=== PATIENT | male | born 1940 | race Caucasian/White ===

== ENCOUNTER → 2016-06-30 | Day surgery (SDC) | payer MEDICARE, BC ==
[~2016-06-30] MED LIST: Acetaminophen TAB* 325 MG PO PRN; Buffered Lidocaine 1% SYR 3ML* 3 ML/SYR SYRINGE INTRADERM ONE; Buffered Lidocaine 1% SYR 3ML* 3 ML/SYR SYRINGE ONE; Cyclopentolate 1% OPTH.SOL* 2 ML BTL ONE; Flurbiprofen 0.03% OPTH.SOL* 2.5 ML BTL ONE; Lidocaine 1% MPF* 2 ML VIAL ONE; Lidocaine 2% EPI 1:200000 MPF* 20 ML VIAL ONE; Midazolam* 1 MG/ML 2 ML VIAL (2 MG) ONE; Neomycin/Polymy/Dex OPTH.SUSP* MAXITROL 0.1% 5 ML ONE; Phenylephrine 2.5% OPTH.SOL* 2 ML BTL ONE; Povidone Iodine 5% OPTH* 30 ML BTL ONE; Proparacaine 0.5% OPHTH.SOL* 15 ML BTL ONE; acetaZOLAMIDE TAB* 250 MG ONE; fentaNYL* 50 MCG/ML 2 ML VIAL (100 MCG VIAL) ONE
[2016-06-30 12:19] VITALS: BP 122/72
--- NOTE | 2016-06-30 22:57 | OP ---
DATE OF OPERATION: 06/30/16 [facility] DATE OF : 38 SURGEON: Ronny Edwards MD PREOPERATIVE DIAGNOSIS: Cataract, right eye. POSTOPERATIVE DIAGNOSIS: Cataract, right eye. OPERATIVE PROCEDURE: Phacoemulsification, right eye with IOL. DESCRIPTION OF PROCEDURE: The patient was brought to the operating room after being given 1/2% Alcaine with epinephrine drops in the preoperative area. The eye was prepped and draped in the usual sterile fashion. Sterile drape and eyelid speculum were placed. Again, topical 1/2% Alcaine with epinephrine was given. A paracentesis incision was made at the 9 o'clock position with the No.75 blade. Clear cornea incision 2.2 x 2.2-mm was created at the 12 o'clock position starting at the anterior limbus using the 2.2-mm keratome. The anterior chamber was irrigated with 0.4 mL of 1% non-preservative intracameral lidocaine and filled with DisCoVisc. A capsulorrhexis was completed using the cystotome and the Utrata forceps. Hydrodissection was performed with balanced salt solution. The lens nucleus was removed with the Phacoemulsification handpiece without incident. Cortex was removed with the irrigation-aspiration handpiece. The capsular bag was re-inflated using DisCoVisc and an SN60WF 16 inserted with the shooter followed by an iStent GTS-100L inserted into the trabecular mesh work at 3 o'clock position using its shooter. The irrigation- aspiration handpiece was used to remove all residual DisCoVisc. The eye was refilled with balanced salt solution and the wound checked and found to be watertight. Topical Maxitrol drops were given. [id number]/[facility] [place] #: [id number] [facility]
== END | disposition home or self-care (01) ==
LOC: OREAST 08:28
PROVIDERS: ATTEND Specialist
DX: H25.811 Combined forms of age-related cataract, right eye (principal); H40.1113 Primary open-angle glaucoma, right eye, severe stage; G47.33 Obstructive sleep apnea (adult) (pediatric); Z87.891 Personal history of nicotine dependence; E03.9 Hypothyroidism, unspecified
CPT/HCPCS: A9270-GY; C1783; J2250; J3010; V2632

== ENCOUNTER → 2016-07-07 | Day surgery (SDC) | payer MEDICARE, BC ==
[~2016-07-07] MED LIST changes: -Acetaminophen TAB* 325 MG PO PRN; +Lidocaine 2% PF * 5 ML VIAL ONE; +Propofol* 10 MG/ML 20 ML BTL IV PUSH ONE; -fentaNYL* 50 MCG/ML 2 ML VIAL (100 MCG VIAL) ONE
[2016-07-07 10:25] VITALS: BP 119/84
--- NOTE | 2016-07-07 13:15 | OP ---
OPERATIVE NOTE: DATE OF OPERATION: 07/07/16 DATE OF : 38 SURGEON: Ronny Edwards M.D. PREOPERATIVE DIAGNOSIS: Cataract, left eye. POSTOPERATIVE DIAGNOSIS: Cataract, left eye. OPERATIVE PROCEDURE: Phacoemulsification, left eye, with IOL and iStent. PROCEDURE: The patient was brought to the operating room after being given 1/2% Alcaine with epinep hrine drops in the preoperative area. The eye was prepped and draped in the usual sterile fashion. Sterile drape and eyelid speculum were placed. Again, topical 1/2% Alcaine with epinephrine was gi devorah. A paracentesis incision was made at the 3 o'clock position with the No.75 blade. Clear cornea incision 2.2 x 2.2-mm was created at the 6 o'clock position starting at the anterior limbus using t he 2.2-mm keratome. The anterior chamber was irrigated with 0.4 mL of 1% non-preservative intracame ral lidocaine and filled with DisCoVisc. A capsulorrhexis was completed using the cystotome and the Utrata forceps. Hydrodissection was performed with balanced salt solution. The lens nucleus was re moved with the Phacoemulsification handpiece without incident. Cortex was removed with the irrigati on-aspiration handpiece. The capsular bag was re-inflated using DisCoVisc and an SN60WF 18.5 diopte r implant was inserted with the shooter followed by an iStent GTS-100L inserted with its shooter int o the trabecular meshwork at the 9 o'clock position. The irrigation-aspiration handpiece was used t o remove all residual DisCoVisc. The eye was refilled with balanced salt solution and the wound thiago cked and found to be watertight. Topical Maxitrol drops were given. [id number]/[facility] #: [id number]
== END | disposition home or self-care (01) ==
LOC: OREAST 07:10
PROVIDERS: ATTEND Specialist
DX: H25.812 Combined forms of age-related cataract, left eye (principal); H40.1113 Primary open-angle glaucoma, right eye, severe stage; H40.1122 Primary open-angle glaucoma, left eye, moderate stage; I10 Essential (primary) hypertension; E78.4 Other hyperlipidemia; G47.33 Obstructive sleep apnea (adult) (pediatric)
CPT/HCPCS: A9270-GY; C1783; J2250; J2704; V2632

== ENCOUNTER 2018-01-25 06:40 | Day surgery (SDC) | payer MEDICARE, BC ==
[~2018-01-25 06:40] MED LIST changes: +Acetaminophen TAB* 325 MG PO PRN; +Buffered Lidocaine 0.9% SYRIN* 5 ML/SYR SYRINGE INTRADERM ONE; -Buffered Lidocaine 1% SYR 3ML* 3 ML/SYR SYRINGE INTRADERM ONE; -Buffered Lidocaine 1% SYR 3ML* 3 ML/SYR SYRINGE ONE; -Cyclopentolate 1% OPTH.SOL* 2 ML BTL ONE; -Flurbiprofen 0.03% OPTH.SOL* 2.5 ML BTL ONE; -Lidocaine 1% MPF* 2 ML VIAL ONE; -Lidocaine 2% EPI 1:200000 MPF* 20 ML VIAL ONE; -Lidocaine 2% PF * 5 ML VIAL ONE; -Midazolam* 1 MG/ML 2 ML VIAL (2 MG) ONE; -Neomycin/Polymy/Dex OPTH.SUSP* MAXITROL 0.1% 5 ML ONE; -Phenylephrine 2.5% OPTH.SOL* 2 ML BTL ONE; -Povidone Iodine 5% OPTH* 30 ML BTL ONE; -Proparacaine 0.5% OPHTH.SOL* 15 ML BTL ONE; -Propofol* 10 MG/ML 20 ML BTL IV PUSH ONE; -acetaZOLAMIDE TAB* 250 MG ONE; +mitoMYcin PWD* 0.2 MG in Sterile Water for Inj* 1 ML OPHTHALMIC SCH
[2018-01-25] MEDS ORDERED: Propofol* 10 MG/ML 20 ML BTL IV PUSH ONE (07:44)
[2018-01-25] MEDS ORDERED: Lidocaine 2% PF * 5 ML VIAL ONE (07:44)
[2018-01-25] MEDS ORDERED: fentaNYL* 50 MCG/ML 2 ML VIAL (100 MCG VIAL) ONE (07:44)
[2018-01-25 08:52] VITALS: BP 142/86
[2018-01-25] MEDS ORDERED: Proparacaine 0.5% OPHTH.SOL* 15 ML BTL ONE (14:50)
[2018-01-25] MEDS ORDERED: Povidone Iodine 5% OPTH* 30 ML BTL ONE (14:50)
[2018-01-25] MEDS ORDERED: Neomycin/Polymy/Dex OPTH.SUSP* MAXITROL 0.1% 5 ML ONE (14:50)
[2018-01-25] MEDS ORDERED: Lidocaine 2% EPI 1:200000 MPF*10-20 ML VIAL ONE (14:50)
[2018-01-25] MEDS ORDERED: Lidocaine 1%* 5 ML VIAL ONE (14:50)
--- NOTE | 2018-01-25 19:16 | OP ---
DATE OF OPERATION: 01/25/18 [facility] DATE OF : 38 SURGEON: Ronny Edwards MD ANESTHESIA: Local with MAC PRE-OP DIAGNOSIS: Uncontrolled glaucoma, right eye. POST-OP DIAGNOSIS: Uncontrolled glaucoma, right eye. OPERATIVE PROCEDURE: XEN Gel implant, right eye. DESCRIPTION OF PROCEDURE: The patient was prepped and draped in the usual sterile fashion. Lid speculum was placed. 2% lidocaine with epinephrine was placed. A paracentesis was made at the 9 o'clock position. 1% non- preservative intracameral lidocaine injected into the anterior chamber. A 1.8- mm clear corneal incision was made at the 7 o'clock position. The gel implant was marked with a marking pen 3 mm posterior to limbus maria t, mitomycin-C 0.2 mg/ mL was injected subconjunctival superiorly. The device was attempted to be inserted on the first pass at the 2 o'clock, however, was unsuccessfully placed. This device was removed and a second implant placed at the 1 o'clock position without difficulty. The Healon was irrigated out with balanced salt solution and then topical Maxitrol drops were given. [id number]/[facility] #: [id number] [facility]
== END 2018-01-25 09:09 | disposition home or self-care (01) ==
LOC: OREAST 06:40
PROVIDERS: ATTEND Specialist
DX: H40.1113 Primary open-angle glaucoma, right eye, severe stage (principal); H40.1122 Primary open-angle glaucoma, left eye, moderate stage; Z96.1 Presence of intraocular lens; I10 Essential (primary) hypertension; E78.4 Other hyperlipidemia; E03.9 Hypothyroidism, unspecified; M15.0 Primary generalized (osteo)arthritis; R07.9 Chest pain, unspecified; Z87.891 Personal history of nicotine dependence; G43.B0 Ophthalmoplegic migraine, not intractable; G47.33 Obstructive sleep apnea (adult) (pediatric)
CPT/HCPCS: A9270-GY; C1725; J2704; J3010; J9280

== ENCOUNTER 2019-01-03 11:39 | Day surgery (SDC) | payer MEDICARE, BC ==
[~2019-01-03 11:39] MED LIST changes: -Buffered Lidocaine 0.9% SYRIN* 5 ML/SYR SYRINGE INTRADERM ONE; +Buffered Lidocaine 1% SYRIN* 1 ML/SYRINGE INTRADERM ONE; +Famotidine IV* 10 MG/ML 2 ML (20 mg) IV ONE; +Lactated Ringers 1000 ML Bag* 1,000 ML IV SCH; +mitoMYcin 0.2 MG (0.02%) in Sterile Water for Inj* 1 ML SCH
[2019-01-03] MEDS ORDERED: Famotidine IV* 10 MG/ML 2 ML (20 mg) ONE (12:29)
[2019-01-03] MEDS ORDERED: Proparacaine 0.5% OPHTH.SOL* 15 ML BTL ONE (13:11)
[2019-01-03] MEDS ORDERED: Acetylcholine 1:100 OPTH* OPHTH.SOLN ONE (13:40)
[2019-01-03] MEDS ORDERED: Triamcinolone Acetonide* 40 MG/ML 1 ML VIAL ONE (13:40)
[2019-01-03] MEDS ORDERED: Bupivacaine 0.25% SDV PF* 10 ML VIAL INJ ONE (13:40)
[2019-01-03] MEDS ORDERED: BSS OPTH.SOL* BTL ONE (13:41)
[2019-01-03] MEDS ORDERED: Atropine 1% OPHTH.SOL* 1 DROP BTL 2-5 ML ONE (13:41)
[2019-01-03] MEDS ORDERED: Lidocaine 2% w/ EPI 1:200,000* 20 ML VIAL ONE (13:41)
[2019-01-03] MEDS ORDERED: Hyaluronidase OVINE* 200 UNIT/ML ML SUBCUT ONE (13:42)
[2019-01-03] MEDS ORDERED: Neomycin/Polymy/Dex OPTH.SUSP* MAXITROL 0.1% 5 ML ONE (13:42)
[2019-01-03] MEDS ORDERED: Povidone Iodine 5% OPTH* 30 ML BTL ONE (13:42)
[2019-01-03] MEDS ORDERED: Sodium Bicarbonate 8.4% VIAL* 10 ML VIAL IV ONE (13:44)
[2019-01-03] MEDS ORDERED: Carbachol 0.01% OPH.SOL* 1.5 ML OPHTH.SOLN ONE (13:56)
[2019-01-03] MEDS ORDERED: Midazolam* 1 MG/ML 2 ML VIAL (2 MG) ONE ×2 (14:05→14:46)
[2019-01-03] MEDS ORDERED: Propofol* 10 MG/ML 20 ML BTL ONE (14:05)
[2019-01-03] MEDS ORDERED: fentaNYL* 50 MCG/ML 2 ML VIAL (100 MCG VIAL) ONE (14:05)
[2019-01-03] MEDS ORDERED: Lidocaine 2% PF * 5 ML VIAL ONE (14:05)
[2019-01-03 16:00] VITALS: BP 136/85
--- NOTE | 2019-01-03 20:15 | OP ---
DATE OF OPERATION: 01/03/19 - [facility] DATE OF : 38 SURGEON: Ronny Edwards MD ANESTHESIA: Local with MAC. PRE-OP DIAGNOSIS: Uncontrolled glaucoma, right eye. POST-OP DIAGNOSIS: Uncontrolled glaucoma, right eye. OPERATIVE PROCEDURE: Trabeculectomy, right eye. COMPLICATIONS: None. DESCRIPTION OF PROCEDURE: The patient was given retrobulbar anesthesia in the operating room; 50:50 mixture of 2% lidocaine with epinephrine and 0.25% Marcaine 50:50 mixture with vitreous added, 4 cc given in the muscle cone without difficulty. Eye was prepped and draped in the usual sterile fashion, with speculum was placed. A traction suture 6-0 silk placed in the superior limbus and the eye rotated inferiorly. A fornix-based conjunctival peritomy was performed with Veronica scissors centered on the 11 o'clock position. Mitomycin-C 0.2 mg/mL was left in place subtenon for 1 minute and then thoroughly irrigated with balanced salt solution. Paracentesis made at the 8 o' clock position with the #75 blade. A limbal-based triangular half scleral thickness flap created with a crescent blade at the 11 o'clock position. Anterior chamber entered with a 3 mm keratome. instilled into the anterior chamber and then some DisCoVisc. A trabecular block was removed with Sharla punch 3 x 1 mm. A peripheral iridectomy was performed with Vannas scissors. The scleral flap sutured with two 10-0 nylon sutures to the appropriate tension and the conjunctiva closed with running locking 10-0 nylon and 9-0 Vicryl closure. The anterior chamber was refilled with balanced salt solution. All wounds checked and found to be watertight. Kenalog 40 mg/mL, 1 mL was given subtenon to the inferior fornix. Traction sutures removed. Topical Maxitrol and atropine given. [id number]/[facility] #: [id number] [facility]
== END 2019-01-03 16:18 | disposition home or self-care (01) ==
LOC: OREAST 11:39
PROVIDERS: ATTEND Specialist
DX: H40.1113 Primary open-angle glaucoma, right eye, severe stage (principal); H00.021 Hordeolum internum right upper eyelid; H01.024 Squamous blepharitis left upper eyelid; H01.021 Squamous blepharitis right upper eyelid; E03.9 Hypothyroidism, unspecified; E78.00 Pure hypercholesterolemia, unspecified; I10 Essential (primary) hypertension; M19.90 Unspecified osteoarthritis, unspecified site
CPT/HCPCS: A9270-GY; J2250; J2704; J3010; J3301; J3471; J3490; J9280